=== PATIENT | male | born 1945 | race Caucasian/White ===

== ENCOUNTER 2024-11-15 12:40 | Outpatient (REF) | payer MEDICARE, SELFPAY ==
--- OUTSIDE RECORDS SUMMARY | 2024-11-16 13:41 | XMS_ITS | Encounter Summary ---
Author Organization [employer] Address [address] [place] [address] [address] [place] [address] Care Team Providers Care Forest And Conservation Worker Name Role Phone Drake Cisneros NP Primary Care Provider Kennedy Joe Unavailable Chandler Fierro Unavailable [phone] Encounter Details Date Type Department Care Team (Late st Contact Info) Description 08/21/2022 Abstract [facility] [address] [place] [address] Drake Cisneros, HOLGER [address] [place] [address] Social History Tobacco Use Types Packs/Day Years Used Date Smoking Tobacco: Never Smokeless Tobacco: Never Tobacco Cessation:Counseling Given: Not Answered Alcohol Use Standard Drinks/Week Comments Yes 0 (1 standard drink = 0.6 oz pur e alcohol) rare PHQ-2 Answer Date Recorded Patient Health Questionnaire-2 Score 0 06/29/2022 Depression Answer Date Recorded Patient Health Questionnaire-2 Score 0 06/29/2022 Sex and Gender Information Value Date Recorded Sex Assigned at Male 04/30/2022 1:48 PM EST Legal Sex Male 5:37 PM EDT Gender Identity Male 04/30/2022 1:48 PM EST Sexual Orientation Straight 06/25/2022 1: 43 PM EST Occupation Industry Job Start Date Job End Date retired Not on file Not on file Not on file documented as of this encounter Plan of Treatment Upcoming Encounters Date Type Department Care Team (Late st Contact Info) Description 12/29/2024 11:30 AM EDT [place] [facility] [address] [place] [address] Mary Ellen Pagan MD [address] [place] [address] 01/04/2025 10:00 AM EDT Office Visit [facility] MED[facility] [address] [place] [address] Drake Cisneros NP [address] [place] [address] 06/07/2025 8:30 AM EST [place] [facility] [address] [place] [address] Rachel Morel documented as of this encounter Visit Diagnoses Not on filedocumented in this encounter Care Teams Forest And Conservation Worker Relationship Specialty Start Date End Date Drake Cisneros NP [address] [place] [address] PCP - General Internal Medicine 07/01/22 Kennedy Joe [address] [place] [address] Dr StevensNieves MD Cardiology 07/01/22 Chandler Fierro [address] [place] [address] Hematology and Oncology 07/01/22 documented as of this encounter
== END 2024-11-15 12:41 | disposition home or self-care (01) ==
LOC: HO.HOSX 12:40
PROVIDERS: Visit Provider Orthopaedic Surgery
DX: Z13.89 Encounter for screening for other disorder (principal)